=== PATIENT | male | born 1945 | race African-American/Black ===

== ENCOUNTER 2021-07-28 19:50 | Inpatient (IN) | payer MEDICARE ==
[~2021-07-28] VITALS: Ht 180.3 cm; Wt 102.7 kg
[2021-07-28 20:00] VITALS: BP 148/89
[2021-07-28] MEDS ORDERED: HYDRALAZINE 20MG/ML VIAL IV PRN (20:45)
[2021-07-28] MEDS ORDERED: ONDANSETRON HCL 4MG/2ML INJ IV PRN (20:45)
[2021-07-28] MEDS ORDERED: POLYVINYL ALCOHOL OPHTH DROPS 15ML EACHEYE PRN (20:45)
[2021-07-28] MEDS ORDERED: NALOXONE HCL 0.4 MG/ML 1ML VIAL IV PRN (20:45)
[2021-07-28] MEDS ORDERED: HYDRALAZINE 5 MG in SODIUM CHLORIDE 0.9% 49.75 ML IV PRN (21:15)
[2021-07-28] MEDS: HYDRALAZINE HCL 25MG TABLET PO SCH (21:27)
[2021-07-28] MEDS: CYANOCOBALAMIN 1000MCG/ML VIAL IM SCH (22:51)
[2021-07-29] MEDS: HYDRALAZINE HCL 25MG TABLET PO SCH ×3 (05:58→21:17)
[2021-07-29 06:26] LABS: CHLORIDE 104 mEq/L (98-107)
[2021-07-29 06:35] LABS: BASOPHILS % 0.8 % (0.0-2.0); EOSINOPHILS % 3.9 % (0.0-5.0); HEMATOCRIT. 39.9 % (42.0-52.0); HEMOGLOBIN. 13.4 g/dL (14.0-18.0); LYMPHOCYTES % 18.7 % (20.0-50.0); MEAN CORPUSCULAR HEMOGLOBIN 26.3 pg (28.0-32.0); MEAN CORPUSCULAR VOLUME 77.9 fL (80.0-94.0); MONOCYTES % 13.1 % (2.0-8.0); NEUTROPHILS % 63.5 % (40.0-76.0); RED BLOOD CELL COUNT 5.12 mill/uL (4.7-6.1); RED CELL DISTRIBUTION WIDTH 15.6 % (11.6-14.6)
[2021-07-29] MEDS: TRAMADOL 50MG TABLET PO PRN (06:56)
[2021-07-29 07:34] LABS: PLATELET 321 x1000/uL (130-400)
[2021-07-29 07:59] VITALS: BP 140/88
[2021-07-29] MEDS: CYANOCOBALAMIN 1000MCG/ML VIAL IM SCH (09:00)
[2021-07-29] MEDS ORDERED: ENOXAPARIN 40MG/0.4ML SYR SUBCUT SCH (09:00)
[2021-07-29] MEDS: AMLODIPINE 10MG TABLET PO SCH (09:39)
[2021-07-29] MEDS: ACETAMINOPHEN 325MG TABLET PO PRN ×2 (09:39→19:46)
[2021-07-29] MEDS: ENOXAPARIN 30MG/0.3ML SYR SUBCUT SCH ×2 (09:40→21:17)
[2021-07-29 20:00] VITALS: BP 137/92
[2021-07-29] MEDS: ZOLPIDEM TARTRATE 5MG TABLET PO PRN (22:52)
[2021-07-30] MEDS: HYDRALAZINE HCL 25MG TABLET PO SCH ×3 (05:40→21:34)
[2021-07-30] MEDS: TRAMADOL 50MG TABLET PO PRN ×2 (05:40→10:10)
[2021-07-30 08:00] VITALS: BP 132/69
[2021-07-30 08:42] LABS: BASOPHILS % 1.2 % (0.0-2.0); EOSINOPHILS % 3.8 % (0.0-5.0); HEMATOCRIT. 39.3 % (42.0-52.0); HEMOGLOBIN. 12.6 g/dL (14.0-18.0); LYMPHOCYTES % 24.2 % (20.0-50.0); MEAN CORPUSCULAR HEMOGLOBIN 25.4 pg (28.0-32.0); MEAN CORPUSCULAR VOLUME 79.1 fL (80.0-94.0); MEAN PLATELET VOLUME 8.1 fl (7.4-10.4); MONOCYTES % 12.2 % (2.0-8.0); NEUTROPHILS % 58.6 % (40.0-76.0); PLATELET 416 x1000/uL (130-400); RED BLOOD CELL COUNT 4.96 mill/uL (4.7-6.1)
[2021-07-30 09:03] LABS: CHLORIDE 102 mEq/L (98-107)
[2021-07-30 09:09] LABS: TOTAL IRON BINDING CAPACITY 214 ug/dL (250-450)
[2021-07-30] MEDS: AMLODIPINE 10MG TABLET PO SCH (09:23)
[2021-07-30] MEDS: CYANOCOBALAMIN 1000MCG/ML VIAL IM SCH (09:23)
[2021-07-30] MEDS: ENOXAPARIN 30MG/0.3ML SYR SUBCUT SCH ×2 (09:24→20:27)
[2021-07-30 20:00] VITALS: BP 141/98
[2021-07-30] MEDS: ZOLPIDEM TARTRATE 5MG TABLET PO PRN (21:33)
[2021-07-31] MEDS: HYDRALAZINE HCL 25MG TABLET PO SCH ×3 (05:39→21:35)
[2021-07-31] MEDS: TRAMADOL 50MG TABLET PO PRN ×3 (05:40→21:37)
[2021-07-31 07:25] LABS: BASOPHILS % 0.5 % (0.0-2.0); EOSINOPHILS % 3.1 % (0.0-5.0); HEMATOCRIT. 36.8 % (42.0-52.0); HEMOGLOBIN. 12.1 g/dL (14.0-18.0); LYMPHOCYTES % 23.6 % (20.0-50.0); MEAN CORPUSCULAR HEMOGLOBIN 25.6 pg (28.0-32.0); MEAN CORPUSCULAR VOLUME 78.2 fL (80.0-94.0); MONOCYTES % 12.9 % (2.0-8.0); NEUTROPHILS % 59.9 % (40.0-76.0); PLATELET 452 x1000/uL (130-400); RED BLOOD CELL COUNT 4.71 mill/uL (4.7-6.1); RED CELL DISTRIBUTION WIDTH 15.7 % (11.6-14.6)
[2021-07-31 07:49] LABS: CHLORIDE 104 mEq/L (98-107)
[2021-07-31 08:00] VITALS: BP 117/80
[2021-07-31] MEDS: ENOXAPARIN 30MG/0.3ML SYR SUBCUT SCH ×2 (08:48→21:36)
[2021-07-31] MEDS: CYANOCOBALAMIN 1000MCG/ML VIAL IM SCH (08:48)
[2021-07-31] MEDS: AMLODIPINE 10MG TABLET PO SCH (08:48)
[2021-07-31] MEDS: LIDOCAINE 5% PATCH TOP SCH (13:12)
[2021-07-31 20:00] VITALS: BP 148/88
[2021-08-01] MEDS: ZOLPIDEM TARTRATE 5MG TABLET PO PRN (00:23)
[2021-08-01] MEDS: HYDRALAZINE HCL 25MG TABLET PO SCH ×3 (06:15→21:23)
[2021-08-01 08:00] VITALS: BP 149/85
[2021-08-01] MEDS: AMLODIPINE 10MG TABLET PO SCH (08:51)
[2021-08-01] MEDS: CYANOCOBALAMIN 1000MCG/ML VIAL IM SCH (08:51)
[2021-08-01] MEDS: TRAMADOL 50MG TABLET PO PRN ×2 (08:52→15:16)
[2021-08-01] MEDS: ENOXAPARIN 30MG/0.3ML SYR SUBCUT SCH ×2 (08:53→21:22)
[2021-08-01] MEDS: LIDOCAINE 5% PATCH TOP SCH (08:54)
[2021-08-01 14:10] VITALS: BP 137/88
[2021-08-01 20:00] VITALS: BP 134/84
[2021-08-01] MEDS: ACETAMINOPHEN 325MG TABLET PO PRN (21:23)
[2021-08-02] MEDS: TRAMADOL 50MG TABLET PO PRN ×2 (05:52→13:28)
[2021-08-02] MEDS: HYDRALAZINE HCL 25MG TABLET PO SCH ×3 (05:52→21:17)
[2021-08-02 08:00] VITALS: BP 142/91
[2021-08-02] MEDS: AMLODIPINE 10MG TABLET PO SCH (08:54)
[2021-08-02] MEDS: CYANOCOBALAMIN 1000MCG/ML VIAL IM SCH (08:54)
[2021-08-02] MEDS: LIDOCAINE 5% PATCH TOP SCH (08:55)
[2021-08-02] MEDS: ENOXAPARIN 30MG/0.3ML SYR SUBCUT SCH ×2 (08:55→21:16)
[2021-08-02 20:00] VITALS: BP 125/91
[2021-08-02] MEDS: LACTULOSE 20G/30ML UDC PO SCH ×2 (21:16→23:33)
[2021-08-02 21:47] LABS: CLARITY URINE CLEAR (CLEAR); COLOR URINE YELLOW (YELLOW); KETONES URINE TRACE (NEGATIVE); LEUKOCYTE ESTERASE URINE NEGATIVE (NEGATIVE); NITRITE URINE NEGATIVE (NEGATIVE); OCCULT BLOOD URINE NEGATIVE (NEGATIVE); PH URINE 5.5 (4.5-8.0); PROTEIN URINE TRACE (NEGATIVE); SPECIFIC GRAVITY URINE 1.019 (1.005-1.030)
[2021-08-03] MEDS ORDERED: TRAMADOL 50MG TABLET PO PRN (05:45)
[2021-08-03] MEDS: LACTULOSE 20G/30ML UDC PO SCH ×2 (05:49→08:48)
[2021-08-03] MEDS: HYDRALAZINE HCL 25MG TABLET PO SCH ×3 (05:50→21:32)
[2021-08-03 08:00] VITALS: BP 119/81
[2021-08-03] MEDS: CYANOCOBALAMIN 1000MCG/ML VIAL IM SCH (08:41)
[2021-08-03] MEDS: ENOXAPARIN 30MG/0.3ML SYR SUBCUT SCH ×2 (08:41→21:31)
[2021-08-03] MEDS: AMLODIPINE 10MG TABLET PO SCH (08:41)
[2021-08-03] MEDS: LIDOCAINE 5% PATCH TOP SCH (08:47)
[2021-08-03 12:48] VITALS: BP 134/81
[2021-08-03 20:00] VITALS: BP 136/93
[2021-08-03] MEDS ORDERED: ZOLPIDEM TARTRATE 5MG TABLET PO PRN (21:00)
[2021-08-03] MEDS: TRAMADOL 50MG TABLET PO PRN (21:32)
[2021-08-04 08:00] VITALS: BP 144/94
[2021-08-04] MEDS: AMLODIPINE 10MG TABLET PO SCH (08:46)
[2021-08-04] MEDS: LIDOCAINE 5% PATCH TOP SCH (08:47)
[2021-08-04] MEDS: ENOXAPARIN 30MG/0.3ML SYR SUBCUT SCH ×2 (08:47→21:09)
[2021-08-04] MEDS: HYDRALAZINE HCL 25MG TABLET PO SCH ×2 (14:00→21:10)
[2021-08-04 20:00] VITALS: BP 158/102
[2021-08-05] MEDS: HYDRALAZINE HCL 50MG TABLET PO SCH ×2 (06:52→15:51)
[2021-08-05 08:16] VITALS: BP 139/96
[2021-08-05] MEDS: ENOXAPARIN 30MG/0.3ML SYR SUBCUT SCH ×2 (09:54→22:17)
[2021-08-05] MEDS: AMLODIPINE 10MG TABLET PO SCH (09:54)
[2021-08-05] MEDS: LIDOCAINE 5% PATCH TOP SCH (09:54)
[2021-08-05 11:46] LABS: BASOPHILS % 0.6 % (0.0-2.0); EOSINOPHILS % 0.4 % (0.0-5.0); HEMATOCRIT. 38.5 % (42.0-52.0); HEMOGLOBIN. 12.2 g/dL (14.0-18.0); LYMPHOCYTES % 9.7 % (20.0-50.0); MEAN CORPUSCULAR HEMOGLOBIN 24.7 pg (28.0-32.0); MEAN CORPUSCULAR VOLUME 78.1 fL (80.0-94.0); MEAN PLATELET VOLUME 7.8 fl (7.4-10.4); MONOCYTES % 6.2 % (2.0-8.0); NEUTROPHILS % 83.1 % (40.0-76.0); PLATELET 660 x1000/uL (130-400); RED BLOOD CELL COUNT 4.93 mill/uL (4.7-6.1); RED CELL DISTRIBUTION WIDTH 15.4 % (11.6-14.6)
[2021-08-05 11:55] LABS: CHLORIDE 101 mEq/L (98-107)
[2021-08-05] MEDS: TRAMADOL 50MG TABLET PO PRN ×2 (13:53→15:51)
[2021-08-05 19:10] LABS: 25-HYDROXY VITAMIN D3 10 ng/mL (.)
[2021-08-05 20:00] VITALS: BP 133/84
[2021-08-05] MEDS: HYDRALAZINE HCL 25MG TABLET PO SCH (22:17)
[2021-08-06 04:00] VITALS: BP 126/80
[2021-08-06] MEDS: HYDRALAZINE HCL 25MG TABLET PO SCH ×3 (06:22→21:31)
[2021-08-06 08:00] VITALS: BP 112/74
[2021-08-06] MEDS: ENOXAPARIN 30MG/0.3ML SYR SUBCUT SCH ×2 (08:43→21:30)
[2021-08-06] MEDS: AMLODIPINE 10MG TABLET PO SCH (08:43)
[2021-08-06] MEDS: LIDOCAINE 5% PATCH TOP SCH (08:44)
[2021-08-06 13:36] VITALS: BP 127/89
[2021-08-06 20:00] VITALS: BP 135/91
[2021-08-07] MEDS: HYDRALAZINE HCL 25MG TABLET PO SCH ×3 (07:14→21:18)
[2021-08-07 08:00] VITALS: BP 136/89
[2021-08-07] MEDS ORDERED: ONDANSETRON 4MG ODT PO PRN (09:00)
[2021-08-07] MEDS: AMLODIPINE 10MG TABLET PO SCH (09:01)
[2021-08-07] MEDS: TRAMADOL 50MG TABLET PO PRN (09:02)
[2021-08-07] MEDS: ENOXAPARIN 30MG/0.3ML SYR SUBCUT SCH ×2 (09:02→21:14)
[2021-08-07] MEDS: LIDOCAINE 5% PATCH TOP SCH (09:03)
[2021-08-07 13:33] VITALS: BP 127/86
[2021-08-07 20:00] VITALS: BP 130/83
[2021-08-07] MEDS ORDERED: BISACODYL 5MG TABLET PO NR (21:00)
[2021-08-08 01:18] VITALS: BP 130/83
[2021-08-08] MEDS: HYDRALAZINE HCL 25MG TABLET PO SCH ×3 (06:07→21:14)
[2021-08-08 08:00] VITALS: BP 121/83
[2021-08-08] MEDS: AMLODIPINE 10MG TABLET PO SCH (08:26)
[2021-08-08] MEDS: TRAMADOL 50MG TABLET PO PRN ×2 (08:28→21:13)
[2021-08-08] MEDS: ENOXAPARIN 30MG/0.3ML SYR SUBCUT SCH ×2 (08:30→21:13)
[2021-08-08] MEDS: LIDOCAINE 5% PATCH TOP SCH (08:31)
[2021-08-08] MEDS ORDERED: ERGOCALCIFEROL 50000UNITS CAPSULE PO SCH (17:00)
[2021-08-08 20:00] VITALS: BP 121/79
[2021-08-09] MEDS: HYDRALAZINE HCL 25MG TABLET PO SCH ×3 (06:18→21:03)
[2021-08-09 06:59] LABS: HEMATOCRIT. 38.4 % (42.0-52.0); HEMOGLOBIN. 12.4 g/dL (14.0-18.0); MEAN CORPUSCULAR HEMOGLOBIN 25.4 pg (28.0-32.0); MEAN CORPUSCULAR VOLUME 78.5 fL (80.0-94.0); MEAN PLATELET VOLUME 7.5 fl (7.4-10.4); PLATELET 547 x1000/uL (130-400); RED BLOOD CELL COUNT 4.89 mill/uL (4.7-6.1); RED CELL DISTRIBUTION WIDTH 15.4 % (11.6-14.6)
[2021-08-09 08:00] VITALS: BP 135/86
[2021-08-09 08:21] LABS: CHLORIDE 103 mEq/L (98-107)
[2021-08-09] MEDS: ENOXAPARIN 30MG/0.3ML SYR SUBCUT SCH ×2 (09:16→21:03)
[2021-08-09] MEDS: LIDOCAINE 5% PATCH TOP SCH (09:17)
[2021-08-09] MEDS: AMLODIPINE 10MG TABLET PO SCH (09:17)
[2021-08-09] MEDS: MULTIVITAMINS,THER W-MINERALS TABLET PO SCH (09:17)
[2021-08-09] MEDS: TRAMADOL 50MG TABLET PO PRN (09:21)
[2021-08-09 14:53] LABS: ATYPICAL LYMPHOCYTES 1; PLATELET ESTIMATE INCREASED
[2021-08-09 20:00] VITALS: BP 135/90
[2021-08-10] MEDS: HYDRALAZINE HCL 25MG TABLET PO SCH ×3 (06:11→20:31)
[2021-08-10] MEDS: TRAMADOL 50MG TABLET PO PRN (06:12)
[2021-08-10 08:21] VITALS: BP 115/69
[2021-08-10] MEDS: MULTIVITAMINS,THER W-MINERALS TABLET PO SCH (08:42)
[2021-08-10] MEDS: ENOXAPARIN 30MG/0.3ML SYR SUBCUT SCH ×2 (08:42→20:31)
[2021-08-10] MEDS: LIDOCAINE 5% PATCH TOP SCH (08:43)
[2021-08-10] MEDS: AMLODIPINE 10MG TABLET PO SCH (08:43)
[2021-08-10] MEDS ORDERED: CYANOCOBALAMIN 1000MCG/ML VIAL IM SCH (09:00)
[2021-08-10 20:29] VITALS: BP 115/80
[2021-08-11] MEDS: HYDRALAZINE HCL 25MG TABLET PO SCH ×3 (05:46→21:55)
[2021-08-11 06:53] LABS: BASOPHILS % 1.5 % (0.0-2.0); EOSINOPHILS % 8.5 % (0.0-5.0); HEMATOCRIT. 35.6 % (42.0-52.0); HEMOGLOBIN. 11.8 g/dL (14.0-18.0); LYMPHOCYTES % 27.9 % (20.0-50.0); MEAN CORPUSCULAR HEMOGLOBIN 25.6 pg (28.0-32.0); MEAN CORPUSCULAR VOLUME 77.4 fL (80.0-94.0); MEAN PLATELET VOLUME 7.5 fl (7.4-10.4); NEUTROPHILS % 50.1 % (40.0-76.0); PLATELET 502 x1000/uL (130-400); RED CELL DISTRIBUTION WIDTH 15.5 % (11.6-14.6)
[2021-08-11 07:06] LABS: CHLORIDE 106 mEq/L (98-107)
[2021-08-11 08:42] VITALS: BP 103/65
[2021-08-11] MEDS: MULTIVITAMINS,THER W-MINERALS TABLET PO SCH (08:45)
[2021-08-11] MEDS: AMLODIPINE 10MG TABLET PO SCH (08:45)
[2021-08-11] MEDS: ENOXAPARIN 30MG/0.3ML SYR SUBCUT SCH ×2 (08:46→21:55)
[2021-08-11] MEDS: LIDOCAINE 5% PATCH TOP SCH (08:46)
[2021-08-11 20:46] VITALS: BP 136/91
[2021-08-12] MEDS: HYDRALAZINE HCL 25MG TABLET PO SCH ×2 (05:39→14:00)
[2021-08-12 08:00] VITALS: BP 107/83
[2021-08-12] MEDS: AMLODIPINE 10MG TABLET PO SCH (08:34)
[2021-08-12] MEDS: ACETAMINOPHEN 325MG TABLET PO PRN (08:35)
[2021-08-12] MEDS: LIDOCAINE 5% PATCH TOP SCH (08:36)
[2021-08-12] MEDS: MULTIVITAMINS,THER W-MINERALS TABLET PO SCH (08:37)
[2021-08-12] MEDS: ENOXAPARIN 30MG/0.3ML SYR SUBCUT SCH (08:37)
[2021-08-12 08:50] LABS: CHLORIDE 106 mEq/L (98-107)
[2021-08-12 14:34] VITALS: BP 107/83
== END 2021-08-12 17:15 | DRG 552 ==
PROVIDERS: ADMIT Physical Medicine & Rehabilitation Spinal Cord Injury Medicine; ATTEND Internal Medicine
DX: M48.061 Spinal stenosis, lumbar region without neurogenic claudication (principal); K57.92 Diverticulitis of intestine, part unspecified, without perforation or abscess without bleeding; E44.0 Moderate protein-calorie malnutrition; G82.20 Paraplegia, unspecified; N17.9 Acute kidney failure, unspecified; E87.1 Hypo-osmolality and hyponatremia; D64.9 Anemia, unspecified; E53.8 Deficiency of other specified B group vitamins; E66.9 Obesity, unspecified; M48.02 Spinal stenosis, cervical region; Z20.822 Contact with and (suspected) exposure to COVID-19; R55 Syncope and collapse; F06.34 Mood disorder due to known physiological condition with mixed features; N18.9 Chronic kidney disease, unspecified; I12.9 Hypertensive chronic kidney disease with stage 1 through stage 4 chronic kidney disease, or unspecified chronic kidney disease; R53.81 Other malaise; E55.9 Vitamin D deficiency, unspecified; G90.8 Other disorders of autonomic nervous system; R26.89 Other abnormalities of gait and mobility; Z82.49 Family history of ischemic heart disease and other diseases of the circulatory system; Z68.31 Body mass index [BMI] 31.0-31.9, adult; Z91.81 History of falling; Z86.73 Personal history of transient ischemic attack (TIA), and cerebral infarction without residual deficits; Z71.3 Dietary counseling and surveillance
CPT/HCPCS: 36415; 80048; 80053; 80061; 81003; 82306; 82533; 82550; 82728; 83540; 83550; 84134; 84443; 85025; 87426; 92523; 93970; 97110; 97116; 97150; 97162; 97166; 97530; 97535; J1650; J3420; Q0162